=== PATIENT | female | born 1945 | race Caucasian/White ===

== ENCOUNTER → 2016-07-12 | Outpatient (CLI) | payer MEDICARE, BC ==
--- NOTE | 2016-07-13 11:41 | MM ---
Reason for exam: screening (asymptomatic). Last mammogram was performed 1 year and 10 months ago. History: Patient is postmenopausal. Family history of breast cancer in sister at age 67. Took estrogen for 7 years 2 months. Took progesterone for 7 years 2 months. Physical Findings: A clinical breast exam by your physician is recommended on an annual basis and results should be correlated with mammographic findings. MG 3D Screening Mammo W/Cad Bilateral CC and MLO view(s) were taken. Prior study comparison: September 05, 2014, bilateral MG screening mammo w CAD. February 28, 2013, [facility] DIGITAL RIGHT MAMMOGRAM w/CAD. There are scattered fibroglandular densities. Finding: There are typically benign calcifications in both breasts. No significant changes in finding since September 05, 2014 and February 28, 2013. ASSESSMENT: Benign, BI-RAD 2 RECOMMENDATION: Routine screening mammogram of both breasts in 1 year.
== END | disposition home or self-care (01) ==
LOC: RADMAMWWP 08:48
PROVIDERS: ATTEND Family Medicine
DX: Z12.31 Encounter for screening mammogram for malignant neoplasm of breast (principal)
CPT/HCPCS: 77063; G0202

== ENCOUNTER → 2016-11-30 | Outpatient (CLI) | payer MEDICARE, BC ==
[2016-11-30 07:26] LABS: Appearance,Urine Clear (Clear); Bilirubin,Urine Negative (Negative); Glucose,Urine (UA) Negative (Negative); Ketones,Urine Negative (Negative); Leukocyte Esterase,Urine Negative (Negative); Nitrite,Urine Negative (Negative); PH, Urine 5.5 (5.0-8.0); Protein,Urine Negative (Negative); Specific Gravity,Urine 1.008 (1.001-1.035); UA Billing (MACRO vs. MICRO) CHEM; Urobilinogen,Urine <2.0 mg/dL (<2.0)
[2016-11-30 07:37] LABS: Basophils % (A) 1 %; CH 30.6; Eosinophils # (A) 0.3 k/uL (0-0.7); Eosinophils % (A) 4 %; HCT 43.5 % (34.0-46.0); HDW 2.09; HGB 14.4 gm/dL (11.4-16.0); Luc % (Auto) 3; Lymphocytes # (A) 1.3 k/uL (1.0-4.8); Lymphocytes % (A) 20 %; MCH 31.8 pg (25.0-35.0); MCV 96.2 fL (80.0-100.0); Mean Platelet Volume 6.8; Monocytes # (A) 0.4 k/uL (0-1.0); Monocytes % (A) 6 %; Neutrophils # (A) 4.4 k/uL (1.3-7.7); Neutrophils % (A) 66 %; RBC 4.52 m/uL (3.80-5.40); RDW 12.5 % (11.5-15.5); WBC 6.6 k/uL (3.8-10.6); WBC (Perox) 6.61
[2016-11-30 08:24] LABS: ALT 30 U/L (9-52); AST 27 U/L (14-36); Alkaline Phosphatase 82 U/L (38-126); Anion Gap 12 mmol/L; Bilirubin, Delta 0.3 mg/dL (0.0-0.2); Blood Urea Nitrogen 18 mg/dL (7-17); Carbon Dioxide 29 mmol/L (22-30); Chloride 100 mmol/L (98-107); Glucose 88 mg/dL (74-99); Non-African American GFR(MDRD) >60 (>60 ml/min/1.73 sqM); Potassium 4.5 mmol/L (3.5-5.1); Sodium 141 mmol/L (137-145); Total Bilirubin 0.5 mg/dL (0.2-1.3); Total Protein 7.2 g/dL (6.3-8.2)
[2016-11-30 12:11] LABS: Hemoglobin A1C 5.5 % (4.2-6.1)
== END | disposition home or self-care (01) ==
LOC: LABWHC1 06:42
PROVIDERS: ATTEND Family Medicine
DX: F32.2 Major depressive disorder, single episode, severe without psychotic features (principal); Z79.899 Other long term (current) drug therapy
CPT/HCPCS: 36415; 80053; 80306; 81003; 82248; 82570; 83036; 84439; 84443; 84479; 85025

== ENCOUNTER 2016-12-08 01:44 | Inpatient (IN) | payer MEDICARE, BC ==
[2016-12-08] MEDS ORDERED: IPRATROPIUM 0.5 MG/2.5 ML NEBU INHALATION STA (01:53)
[2016-12-08] MEDS ORDERED: ALBUTEROL NEBULIZED 2.5 MG/3 ML INHALATION STA (01:53)
[2016-12-08] MEDS ORDERED: SODIUM CHLORIDE 0.9% 1,000 ML IV STA ×2 (01:53→02:50)
--- NOTE | 2016-12-08 01:54 | ED ---
General Adult HPI - General Stated complaint: MAVERICK Time Seen by Provider: 12/08/16 01:52 Source: RN notes reviewed, old records reviewed - History of Present Illness Initial comments: This is a 71 female to the ED co sob, weakness, chest pain and chest tightness. Patient has history of asthma, COPD, high cholesterol. Patient has no fever, no travel history no known sick contacts. Patient is complaining of chest pain shows of breath increased cough and congestion increased sputum production. Denies fevers - Related Data Home Medications Medication Instructions Recorded Confirmed Omeprazole [PriLOSEC] 20 mg PO AC-BRKFST 05/25/14 12/08/16 Pentosan Polysulfate Sodium 1 tab PO TID 11/24/14 12/08/16 [Elmiron] traMADol HCL [Tramadol HCl] 100 mg PO TID PRN 11/24/14 12/08/16 Amitriptyline HCl [Elavil] 50 mg PO HS 07/21/15 12/08/16 lamoTRIgine [LaMICtal] 200 mg PO QAM 07/21/15 12/08/16 Albuterol Sulfate [Proair Hfa] 1 - 2 puff INHALATION RT-Q6H PRN 12/17/15 Multivitamins, Thera [Multivitamin 1 tab PO DAILY 12/23/15 12/08/16 (formulary)] fluvoxaMINE MALEATE [Luvox] 100 mg PO BID 12/23/15 12/08/16 traZODone HCL 150 mg PO HS 12/23/15 12/08/16 Magnesium Hydroxide [Milk of 2,400 mg PO DAILY PRN 04/16/16 12/08/16 Magnesia] Naproxen Sodium [Aleve] 220 - 440 mg PO BID PRN 04/16/16 12/08/16 Previous Rx's Medication Instructions Recorded Gabapentin [Neurontin] 100 mg PO TID #90 cap 04/18/16 Allergies Allergy/AdvReac Type Severity Reaction Status Date / Time No Known Allergies Allergy Verified 12/08/16 01:57 Review of Systems ROS Statement: Those systems with pertinent positive or pertinent negative responses have been documented in the HPI. ROS Other: All systems not noted in ROS Statement are negative. Past Medical History Past Medical History: Asthma, COPD, Hyperlipidemia Additional Past Medical History / Comment(s): Hx of Polio, IBS, TIA 7 yrs ago ( no residual per pt), hiatal hernia, arthritis, Interstitial Cystitis. History of Any Multi-Drug Resistant Organisms: None Reported Past Surgical History: Hernia Repair, Tonsillectomy Additional Past Surgical History / Comment(s): 3- lap carlos fundoplication , Umbilical Hernia Repair, Right leg - part of bone removed as a child due to polio., EGD w/balloon dilation d/t Past Anesthesia/Blood Transfusion Reactions: No Reported Reaction Past Psychological History: Anxiety, Bipolar, Depression Additional Psychological History / Comment(s): MAJOR DEPRESSIVE DISORDER. HX OF SUICIDE ATTEMPT Smoking Status: Former smoker Past Alcohol Use History: None Reported Additional Past Alcohol Use History / Comment(s): SMOKING AT AGE 21STARTED ,<1 PPD, QUIT 2011. PAST ETOH ABUSE NONE SINCE Past Drug Use History: None Reported - Past Family History Father Family Medical History: Asthma Additional Family Medical History / Comment(s): emphysema Mother Family Medical History: Memory Impairment Additional Family Medical History / Comment(s): alzheimers Sister(s) Family Medical History: Cancer Additional Family Medical History / Comment(s): ca:breast General Exam General appearance: alert, in no apparent distress, anxious Head exam: Present: atraumatic, normocephalic, normal inspection Eye exam: Present: normal appearance, PERRL, EOMI. Absent: scleral icterus, conjunctival injection, periorbital swelling ENT exam: Present: normal exam, mucous membranes moist Neck exam: Present: normal inspection. Absent: tenderness, meningismus, lymphadenopathy Respiratory exam: Present: normal lung sounds bilaterally, wheezes, accessory muscle use, decreased breath sounds, prolonged expiratory. Absent: respiratory distress, rales, rhonchi, stridor Cardiovascular Exam: Present: regular rate, normal rhythm, normal heart sounds. Absent: systolic murmur, diastolic murmur, rubs, gallop, clicks GI/Abdominal exam: Present: soft, normal bowel sounds. Absent: distended, tenderness, guarding, rebound, rigid Extremities exam: Present: normal inspection, full ROM, normal capillary refill. Absent: tenderness, pedal edema, joint swelling, calf tenderness Back exam: Present: normal inspection Neurological exam: Present: alert, oriented X3, CN II-XII intact Psychiatric exam: Present: normal affect, normal mood Skin exam: Present: warm, dry, intact, normal color. Absent: rash Course Vital Signs 12/08/16 12/08/16 12/08/16 01:48 01:56 02:07 Temperature 97.6 F Pulse Rate 91 88 89 Respiratory 18 20 22 Rate Blood Pressure 130/60 119/61 O2 Sat by Pulse 90 L 95 Oximetry 12/08/16 02:30 Temperature Pulse Rate 89 Respiratory Rate Blood Pressure O2 Sat by Pulse Oximetry - Reevaluation(s) Reevaluation #1: 12/08/16 04:10 Date patient does have moderate improvement after prolonged breathing treatment EKG Findings - EKG Comments: EKG Findings:: EKG shows normal sinus rhythm of 92, ND 1:30, QRS 90, QTC 4:30 Medical Decision Making - Medical Decision Making 71 female here for evaluation of shortness of breath cough and congestion, low pulse ox, asthma and COPD exacerbation, patient will be admitted for treatment, breathing treatments, monitoring her pulmonary status - Lab Data Result diagrams: 12/08/16 02:00 12/08/16 02:00 Lab Results 12/08/16 12/08/16 12/08/16 Range/Units 02:00 02:00 02:00 WBC 18.4 H (3.8-10.6) k/uL RBC 4.12 (3.80-5.40) m/uL Hgb 12.8 (11.4-16.0) gm/dL Hct 37.6 (34.0-46.0) % MCV 91.3 (80.0-100.0) fL MCH 31.1 (25.0-35.0) pg MCHC 34.0 (31.0-37.0) g/dL RDW 12.5 (11.5-15.5) % Plt Count 205 (150-450) k/uL Neutrophils % 89 % Lymphocytes % 6 % Monocytes % 4 % Eosinophils % 0 % Basophils % 0 % Neutrophils # 16.3 H (1.3-7.7) k/uL Lymphocytes # 1.1 (1.0-4.8) k/uL Monocytes # 0.8 (0-1.0) k/uL Eosinophils # 0.0 (0-0.7) k/uL Basophils # 0.0 (0-0.2) k/uL PT (9.0-12.0) sec INR (<1.1) APTT (22.0-30.0) sec Sodium 126 L (137-145) mmol/L Potassium 3.8 (3.5-5.1) mmol/L Chloride 90 L (98-107) mmol/L Carbon Dioxide 23 (22-30) mmol/L Anion Gap 13 mmol/L BUN 8 (7-17) mg/dL Creatinine 0.40 L (0.52-1.04) mg/dL Est GFR (MDRD) Af Amer >60 (>60 ml/min/1.73 sqM) Est GFR (MDRD) Non-Af >60 (>60 ml/min/1.73 sqM) Glucose 131 H (74-99) mg/dL Calcium 9.4 (8.4-10.2) mg/dL Magnesium 1.9 (1.6-2.3) mg/dL Total Bilirubin 0.7 (0.2-1.3) mg/dL AST 34 (14-36) U/L ALT 39 (9-52) U/L Alkaline Phosphatase 108 (38-126) U/L Total Creatine Kinase 47 (30-135) U/L CK-MB (CK-2) 1.9 (0.0-2.4) ng/mL CK-MB (CK-2) Rel Index 4.0 Troponin I <0.012 (0.000-0.034) ng/mL NT-Pro-B Natriuret Pep pg/mL Total Protein 6.3 (6.3-8.2) g/dL Albumin 3.6 (3.5-5.0) g/dL 12/08/16 12/08/16 Range/Units 02:00 02:00 WBC (3.8-10.6) k/uL RBC (3.80-5.40) m/uL Hgb (11.4-16.0) gm/dL Hct (34.0-46.0) % MCV (80.0-100.0) fL MCH (25.0-35.0) pg MCHC (31.0-37.0) g/dL RDW (11.5-15.5) % Plt Count (150-450) k/uL Neutrophils % % Lymphocytes % % Monocytes % % Eosinophils % % Basophils % % Neutrophils # (1.3-7.7) k/uL Lymphocytes # (1.0-4.8) k/uL Monocytes # (0-1.0) k/uL Eosinophils # (0-0.7) k/uL Basophils # (0-0.2) k/uL PT 11.6 (9.0-12.0) sec INR 1.2 (<1.1) APTT 28.9 (22.0-30.0) sec Sodium (137-145) mmol/L Potassium (3.5-5.1) mmol/L Chloride (98-107) mmol/L Carbon Dioxide (22-30) mmol/L Anion Gap mmol/L BUN (7-17) mg/dL Creatinine (0.52-1.04) mg/dL Est GFR (MDRD) Af Amer (>60 ml/min/1.73 sqM) Est GFR (MDRD) Non-Af (>60 ml/min/1.73 sqM) Glucose (74-99) mg/dL Calcium (8.4-10.2) mg/dL Magnesium (1.6-2.3) mg/dL Total Bilirubin (0.2-1.3) mg/dL AST (14-36) U/L ALT (9-52) U/L Alkaline Phosphatase (38-126) U/L Total Creatine Kinase (30-135) U/L CK-MB (CK-2) (0.0-2.4) ng/mL CK-MB (CK-2) Rel Index Troponin I (0.000-0.034) ng/mL NT-Pro-B Natriuret Pep 440 pg/mL Total Protein (6.3-8.2) g/dL Albumin (3.5-5.0) g/dL - Radiology Data Radiology results: report reviewed (Chest x-ray is negative for acute disease), image reviewed Disposition Clinical Impression: Dyspnea, Chest pain, Acute exacerbation of chronic obstructive airways disease Disposition: ADMITTED IP TO THIS [facility] Condition: Fair Referrals: Angel Coronel Jr, [Primary Care Provider] - 1-2 days
[2016-12-08 02:23] LABS: Basophils % (A) 0 %; Eosinophils % (A) 0 %; HCT 37.6 % (34.0-46.0); HDW 2.14; HGB 12.8 gm/dL (11.4-16.0); Luc # (Auto) 0.21; Luc % (Auto) 1; Lymphocytes # (A) 1.1 k/uL (1.0-4.8); Lymphocytes % (A) 6 %; MCH 31.1 pg (25.0-35.0); MCV 91.3 fL (80.0-100.0); Mean Platelet Volume 6.8; Monocytes # (A) 0.8 k/uL (0-1.0); Monocytes % (A) 4 %; Neutrophils # (A) 16.3 k/uL (1.3-7.7); Neutrophils % (A) 89 %; RBC 4.12 m/uL (3.80-5.40); RDW 12.5 % (11.5-15.5); WBC 18.4 k/uL (3.8-10.6); WBC (Perox) 17.96
[2016-12-08 02:28] LABS: INR 1.2 (<1.1); Partial Thromboplastin Time 28.9 sec (22.0-30.0); Prothrombin Time 11.6 sec (9.0-12.0)
[2016-12-08 02:32] LABS: ALT 39 U/L (9-52); AST 34 U/L (14-36); Alkaline Phosphatase 108 U/L (38-126); Anion Gap 13 mmol/L; Blood Urea Nitrogen 8 mg/dL (7-17); Calcium 9.4 mg/dL (8.4-10.2); Carbon Dioxide 23 mmol/L (22-30); Chloride 90 mmol/L (98-107); Glucose 131 mg/dL (74-99); Magnesium 1.9 mg/dL (1.6-2.3); Non-African American GFR(MDRD) >60 (>60 ml/min/1.73 sqM); Potassium 3.8 mmol/L (3.5-5.1); Sodium 126 mmol/L (137-145); Total Bilirubin 0.7 mg/dL (0.2-1.3); Total Protein 6.3 g/dL (6.3-8.2)
[2016-12-08] MEDS ORDERED: KETOROLAC 30 MG/ML 1 ML VIAL IVP STA (02:50)
[2016-12-08] MEDS ORDERED: SODIUM CHLORIDE 0.9% 500 ML IV STA (02:50)
[2016-12-08] MEDS ORDERED: methylPREDNISolone SOD SUCCI 125 MG/2 ML VIAL IV STA (02:50)
[2016-12-08 03:02] LABS: Creatine Kinase 47 U/L (30-135)
[2016-12-08 03:15] LABS: Creatine Kinase MB 1.9 ng/mL (0.0-2.4); Troponin I <0.012 ng/mL (0.000-0.034)
--- NOTE | 2016-12-08 03:17 | XR ---
EXAM: XR Chest, 2 Views CLINICAL HISTORY: Reason: difficulty breathing TECHNIQUE: Frontal and lateral views of the chest. COMPARISON: Chest x-ray dated 04/16/16 FINDINGS: Lungs: Hyperinflation. Bibasilar atelectasis. Pleural space: Unremarkable. No pneumothorax. Heart: Unremarkable. No cardiomegaly. Mediastinum: Unremarkable. Bones/joints: Multilevel degenerative changes of the spine. IMPRESSION: Hyperinflation. Bibasilar atelectasis.
[2016-12-08 05:01] VITALS: BMI 22.6
[2016-12-08] MEDS: SODIUM CHLORIDE 0.9% 1,000 ML IV SCH ×3 (05:36→23:40)
[2016-12-08] MEDS ORDERED: MORPHINE SULFATE 2 MG/ML SYRINGE IVP PRN (05:45)
[2016-12-08] MEDS: MORPHINE SULFATE 2 MG/ML SYRINGE IVP PRN ×5 (06:02→23:40)
[2016-12-08] MEDS: IPRATROPIUM-ALBUTEROL 3 ML NEB INHALATION SCH ×4 (07:09→19:50)
[2016-12-08 08:10] LABS: Glucose,Whole Blood 186 mg/dL (75-99)
[2016-12-08] MEDS ORDERED: MAGNESIUM HYDROXIDE 2,400 MG/10 ML CUP PO PRN (08:26)
[2016-12-08] MEDS: AZITHROMYCIN 500 MG TAB PO SCH (08:59)
[2016-12-08] MEDS: methylPREDNISolone SOD SUCCI 125 MG/2 ML VIAL IV SCH ×4 (08:59→23:47)
[2016-12-08] MEDS: ENOXAPARIN 40 MG/0.4 ML SYRINGE SQ SCH (08:59)
[2016-12-08] MEDS: PANTOPRAZOLE 40 MG TABLET PO SCH (09:00)
[2016-12-08] MEDS: lamoTRIgine 100 MG TAB PO SCH (09:00)
[2016-12-08] MEDS: MULTIVITAMINS, THERA 1 EACH TAB PO SCH (09:00)
[2016-12-08 12:29] LABS: Glucose,Whole Blood 165 mg/dL (75-99)
[2016-12-08] MEDS: traMADol 50 MG TAB PO SCH ×2 (14:20→20:45)
--- NOTE | 2016-12-08 16:41 | CONS ---
DATE OF CONSULTATION: This is a 71-year-old female who apparently sees Dr. Maddox in our office. The patient presented to the emergency department with complaints of increasing shortness of breath, weakness, chest pain and chest tightness. She does have a history of COPD, for which he sees Dr. Maddox. She also has a history of hyperlipidemia. No fever. No chills. Not coughing up any blood. Not really bringing up any phlegm per se. She does have chest congestion. The patient does not really look all that bad. She appears only to be on an updraft machine at home and ProAir rescue inhaler. Does not use oxygen at home. Suspect that she does not have overwhelmingly severe COPD. She apparently sees Dr. Coronel or one of the doctors in Dr. Coronel's office. Her home medications include: 1. Omeprazole. 2. Elmiron. 3. Tramadol. 4. Elavil. 5. Lamictal. 6. ProAir HFA. 7. Vitamins. 8. Luvox. 9. Trazodone. 10. Milk of magnesia. 11. Naproxen. 12. Gabapentin. ALLERGIES: DENIED. Medical history is not too remarkable. She does apparently have a history of asthma/COPD which appears to be relatively mild. She also apparently has: 1. Hyperlipidemia. 2. Previous history of polio. 3. IBS. 4. TIA. 5. Hiatal hernia. 6. Arthritis. 7. Interstitial cystitis. 8. Previous hernia repair. 9. Tonsillectomy. 10. She is also status post Lucita fundoplication back in September 2015. 11. She has had the umbilical hernia repair. 12. EGD with balloon dilatation. 13. She also apparently has a history of depression with a previous suicide attempt. Social history is positive for previous tobacco use. Alcohol use is denied. No illicit drug use. Family history is positive for asthma/emphysema as well as dementia. There is also a family history of breast cancer. REVIEW OF SYSTEMS: CONSTITUTIONAL: Negative. NEUROLOGICAL: Negative. HEENT: Negative. CARDIOVASCULAR: Negative. PULMONARY: Shortness of breath, cough. Minimal phlegm production. GI/: Negative. RHEUMATOLOGIC/IMMUNOLOGIC: Negative. ENDOCRINOLOGIC: Negative. Currently temperature is 96.8, heart rate 77, respiratory rate 16, blood pressure 107/58, mean 74. Three-liter saturation 93%. Appears in no acute distress. HEENT examination is grossly unremarkable. Mucous membranes are moist. NECK: Supple. Full range of motion. No adenopathy. Cardiovascular examination reveals regular rhythm and rate. Lungs reveal a few scattered rhonchi. Not much in the way of wheezes. It does not really sound bad. No crackles. ABDOMEN: Soft. Bowel sounds are heard. Extremities are intact. Skin without rash. Lab data is reviewed. White count 18.4. Hemoglobin, hematocrit and platelet count are all normal. PT, INR normal. PTT normal. Sodium 126, potassium 3.8, chloride 90, CO2 of 23. BUN and creatinine were 8 and 0.4. The rest of the labs look okay. N-terminal proBNP okay. Troponins negative. Chest x-ray shows mostly hyperinflation and changes of COPD. Medications are reviewed. ASSESSMENT: 1. Chronic obstructive pulmonary disease exacerbation, possibly triggered by very mild purulent tracheobronchitis. 2. History of hyperlipidemia. 3. History of depression. 4. Previous suicide attempt. 5. Multiple previous surgeries. 6. History of polio. 7. History of irritable bowel syndrome. 8. Previous history of transient ischemic attack. 9. Degenerative joint disease. 10. History of interstitial cystitis. PLAN: Please see my recommendations. The patient's medications are reviewed. We will plan on looking at all her medications and make appropriate adjustments. She does not look bad. Hoping for discharge maybe in a day or so.
--- NOTE | 2016-12-08 16:58 | P.HPIM ---
History of Present Illness H&P Date: 12/08/16 Chief Complaint: Shortness of breath Patient is a 8-year-old female, patient of Dr. Helms and Dr. Johnson in the outpatient setting, with past medical history significant for asthma, COPD, hyperlipidemia, polio, irritable bowel syndrome, TIA, hiatal hernia, arthritis, interstitial cystitis, [Carlos fundoplication, umbilical hernia repair, EGD with balloon dilatation, anxiety, bipolar, and major depressive disorder. Patient presented to the emergency department with complaints of cough, congestion, and increased sputum production associated with chest tightness, and generalized weakness. No history of fevers. Chest x- ray with evidence of COPD and by basilar atelectasis. Labs on admission with evidence of leukocytosis with WBC of 18.4. Sodium 126. Troponin less than 0.012. EKG with evidence of normal sinus rhythm with no evidence of ischemia. Pulse ox on admission 90% on room air. Patient was admitted to the medical floor with the impression of acute exacerbation of COPD and acute hypoxic respiratory failure with consult to Dr. Ayon from pulmonary service. Patient currently complains of shortness of breath with minimal exertion, productive cough, and chest tightness with coughing. Denies chills, fevers, nausea, vomiting or abdominal pain. Patient states she did have one episode of diarrhea this morning. Denies melena or hematochezia. Afebrile. Past Medical History Past Medical History: Asthma, COPD, Hyperlipidemia Additional Past Medical History / Comment(s): Hx of Polio, IBS, TIA 7 yrs ago ( no residual per pt), hiatal hernia, arthritis, Interstitial Cystitis. History of Any Multi-Drug Resistant Organisms: None Reported Past Surgical History: Hernia Repair, Tonsillectomy Additional Past Surgical History / Comment(s): 09-18-15 lap carlos fundoplication , Umbilical Hernia Repair, Right leg - part of bone removed as a child due to polio., EGD w/balloon dilation d/t Past Anesthesia/Blood Transfusion Reactions: No Reported Reaction Past Psychological History: Anxiety, Bipolar, Depression Additional Psychological History / Comment(s): MAJOR DEPRESSIVE DISORDER. HX OF SUICIDE ATTEMPT Smoking Status: Former smoker Past Alcohol Use History: None Reported Additional Past Alcohol Use History / Comment(s): SMOKING AT AGE 21STARTED ,<1 PPD, QUIT 2011. PAST ETOH ABUSE NONE SINCE Past Drug Use History: None Reported - Past Family History Father Family Medical History: Asthma Additional Family Medical History / Comment(s): emphysema Mother Family Medical History: Memory Impairment Additional Family Medical History / Comment(s): alzheimers Sister(s) Family Medical History: Cancer Additional Family Medical History / Comment(s): ca:breast Medications and Allergies Home Medications Medication Instructions Recorded Confirmed Type Omeprazole [PriLOSEC] 20 mg PO AC-BRKFST 05/25/14 12/08/16 History Pentosan Polysulfate Sodium 100 mg PO TID 11/24/14 12/08/16 History [Elmiron] traMADol HCL [Tramadol HCl] 50 mg PO BID 11/24/14 12/08/16 History Amitriptyline HCl [Elavil] 50 mg PO HS 07/21/15 12/08/16 History lamoTRIgine [LaMICtal] 200 mg PO QAM 07/21/15 12/08/16 History Albuterol Sulfate [Proair Hfa] 1 - 2 puff INHALATION RT-Q6H PRN 12/17/15 History Multivitamins, Thera [Multivitamin 1 tab PO DAILY 12/23/15 12/08/16 History (formulary)] fluvoxaMINE MALEATE [Luvox] 100 mg PO BID 12/23/15 12/08/16 History traZODone HCL 150 mg PO HS 12/23/15 12/08/16 History Magnesium Hydroxide [Milk of 2,400 mg PO DAILY PRN 04/16/16 12/08/16 History Magnesia] Naproxen Sodium [Aleve] 220 - 440 mg PO BID PRN 04/16/16 12/08/16 History OLANZapine [ZyPREXA] 5 mg PO HS 12/08/16 12/08/16 History Allergies Allergy/AdvReac Type Severity Reaction Status Date / Time No Known Allergies Allergy Verified 12/08/16 07:56 Physical Exam Vitals: Vital Signs Temp Pulse Pulse Resp BP BP BP 12/08/16 16:22 86 12/08/16 16:10 86 12/08/16 15:49 77 12/08/16 11:06 88 12/08/16 10:50 86 12/08/16 08:00 77 12/08/16 07:20 84 12/08/16 07:10 84 12/08/16 07:00 96.8 F L 77 16 107/58 12/08/16 05:00 96.7 F L 86 20 131/60 12/08/16 04:00 68 20 115/86 12/08/16 02:56 68 16 119/71 12/08/16 02:30 89 12/08/16 02:07 89 22 12/08/16 01:56 88 20 119/61 12/08/16 01:48 97.6 F 91 18 130/60 Pulse Ox 12/08/16 16:22 12/08/16 16:10 12/08/16 15:49 12/08/16 11:06 12/08/16 10:50 12/08/16 08:00 12/08/16 07:20 12/08/16 07:10 12/08/16 07:00 93 L 12/08/16 05:00 98 12/08/16 04:00 94 L 12/08/16 02:56 92 L 12/08/16 02:30 12/08/16 02:07 12/08/16 01:56 95 12/08/16 01:48 90 L Intake and Output 12/08/16 12/08/16 12/08/16 06:59 14:59 22:59 Intake Total 100 1250 Balance 100 1250 Intake: IV 100 750 Sodium Chloride 0.9% 1, 100 750 000 ml @ 100 mls/hr IV . Q10H [facility] Rx#:[id number] Oral 500 Other: Voiding Method Toilet Toilet Toilet # Voids 1 4 4 # Bowel Movements 1 Weight 63.503 kg 63.503 kg 63.503 kg Patient Weight 12/09/16 06:59 Weight 63.503 kg GENERAL: Pt awake and alert, well-nourished, and in no acute distress. HEAD: Atraumatic, normocephalic. EYES: Pupils equal, round, sclera anicteric, conjunctiva are normal. ENT: Moist mucous membranes. NECK: Supple without lymphadenopathy or JVD. LUNGS: Breath sounds diminished with faint expiratory wheeze to auscultation bilaterally. HEART: Heart S1, S2, no S3 or S4. Regular rate and rhythm. No murmurs, rubs or gallops. ABDOMEN: Soft, nontender, mildly distended, normoactive bowel sounds. No guarding, no rebound. EXTREMITIES: Palpable peripheral pulses. No edema. No calf tenderness. NEUROLOGICAL: Pt oriented x 3. No focal deficits noted. Left-sided weakness. PSYCH: Normal mood, normal affect. SKIN: Warm, dry, intact. Normal turgor. No rashes or lesions. Results CBC & Chem 7: 12/08/16 02:00 12/08/16 02:00 Labs: Abnormal Lab Results - Last 24 Hours (Table) 12/08/16 12/08/16 12/08/16 Range/Units 02:00 02:00 07:46 WBC 18.4 H (3.8-10.6) k/uL Neutrophils # 16.3 H (1.3-7.7) k/uL Sodium 126 L (137-145) mmol/L Chloride 90 L (98-107) mmol/L Creatinine 0.40 L (0.52-1.04) mg/dL Glucose 131 H (74-99) mg/dL POC Glucose (mg/dL) 186 H (75-99) mg/dL 12/08/16 Range/Units 12:09 WBC (3.8-10.6) k/uL Neutrophils # (1.3-7.7) k/uL Sodium (137-145) mmol/L Chloride (98-107) mmol/L Creatinine (0.52-1.04) mg/dL Glucose (74-99) mg/dL POC Glucose (mg/dL) 165 H (75-99) mg/dL Chest x-ray: report reviewed Thrombosis Risk Factor Assmnt - DVT/VTE Prophylaxis DVT/VTE Prophylaxis: Pharmacologic Prophylaxis ordered, Mechanical Prophylaxis ordered - Choose All That Apply Each Factor Represents 1 point: Abnormal pulmonary function (COPD) Each Risk Factor Represents 2 Points: Age 61-74 years Other congenital or acquired thrombophilia - If yes, enter type in comment: No Thrombosis Risk Factor Assessment Total Risk Factor Score: 3 Thrombosis Risk Factor Assessment Level: Moderate Risk Assessment and Plan Plan: Impression and plan: 1. Acute exacerbation of COPD. Pulmonary consult requested, recommendations pending. Continue supplemental oxygen to keep oxygen saturation greater than 92 %. Continue nebulized updraft treatments. Continue antibiotics. Continue steroids. Continue pulmonary hygiene. Continue inhaled steroids. Continue supportive treatment and pain management. 2. Leukocytosis, present on admission. 3. Hyponatremia, present on admission. Sodium 126. 4. History of hyperlipidemia. 5. History of polio, left side. 6. History of irritable bowel syndrome. Continue pentostatin. 7. History of TIA. 8. History of hiatal hernia. 9. History of interstitial cystitis. 10. History of laparoscopic Carlos fundoplication. 11. History of EGD with balloon dilation. 12. Anxiety, bipolar, major depressive disorder, stable. Continue Desyrel, Zyprexa, Lamictal, Luvox, and Elavil. 13. History of nicotine dependence. Continue to monitor patient. Home medications have been reviewed and resumed as appropriate. Continue GI and DVT prophylaxis. Continue to follow with pulmonary service. Repeat CBC and BMP in a.m. The above impression and plan have been discussed and directed by Dr. Coronel. Sofia PIPER acting as scribe for Dr. Coronel.
[2016-12-08 17:44] LABS: Glucose,Whole Blood 131 mg/dL (75-99)
[2016-12-08] MEDS: clonazePAM 0.5 MG TAB PO PRN (18:31)
[2016-12-08] MEDS: SYMBICORT 160-4.5 MCG INHALER INHALATION SCH (19:50)
[2016-12-08 20:17] LABS: Glucose,Whole Blood 134 mg/dL (75-99)
[2016-12-08] MEDS: AMITRIPTYLINE HCL 50 MG TAB PO SCH (20:45)
[2016-12-08] MEDS: traZODone HCL 50 MG TAB PO SCH (20:46)
[2016-12-08] MEDS: OLANZapine 5 MG TAB PO SCH (20:46)
[2016-12-09] MEDS: traMADol 50 MG TAB PO SCH ×2 (06:16→21:26)
[2016-12-09] MEDS: methylPREDNISolone SOD SUCCI 125 MG/2 ML VIAL IV SCH ×3 (06:19→17:39)
[2016-12-09] MEDS: IPRATROPIUM-ALBUTEROL 3 ML NEB INHALATION SCH ×4 (07:01→20:35)
[2016-12-09] MEDS: SYMBICORT 160-4.5 MCG INHALER INHALATION SCH ×2 (07:01→20:35)
[2016-12-09] MEDS: ENOXAPARIN 40 MG/0.4 ML SYRINGE SQ SCH (07:36)
[2016-12-09] MEDS: AZITHROMYCIN 500 MG TAB PO SCH (07:36)
[2016-12-09] MEDS: MULTIVITAMINS, THERA 1 EACH TAB PO SCH (07:36)
[2016-12-09] MEDS: PANTOPRAZOLE 40 MG TABLET PO SCH (07:37)
[2016-12-09] MEDS: lamoTRIgine 100 MG TAB PO SCH (07:37)
[2016-12-09] MEDS: SODIUM CHLORIDE 0.9% 1,000 ML IV SCH ×2 (07:38→20:19)
[2016-12-09 07:40] LABS: Glucose,Whole Blood 130 mg/dL (75-99)
[2016-12-09] MEDS: clonazePAM 0.5 MG TAB PO PRN (07:59)
[2016-12-09 08:17] LABS: Basophils # (A) 0.1 k/uL (0-0.2); Basophils % (A) 0 %; CH 30.4; Eosinophils % (A) 0 %; HCT 38.2 % (34.0-46.0); HDW 2.21; HGB 12.4 gm/dL (11.4-16.0); Luc # (Auto) 0.18; Luc % (Auto) 1; Lymphocytes # (A) 0.8 k/uL (1.0-4.8); Lymphocytes % (A) 3 %; MCHC 32.5 g/dL (31.0-37.0); MCV 95.4 fL (80.0-100.0); Mean Platelet Volume 6.8; Monocytes # (A) 0.8 k/uL (0-1.0); Monocytes % (A) 3 %; Neutrophils # (A) 21.6 k/uL (1.3-7.7); Neutrophils % (A) 92 %; RBC 4.01 m/uL (3.80-5.40); RDW 12.6 % (11.5-15.5); WBC 23.4 k/uL (3.8-10.6); WBC (Perox) 23.64
[2016-12-09 08:23] LABS: Anion Gap 10 mmol/L; Blood Urea Nitrogen 7 mg/dL (7-17); Calcium 9.5 mg/dL (8.4-10.2); Carbon Dioxide 24 mmol/L (22-30); Chloride 105 mmol/L (98-107); Glucose 135 mg/dL (74-99); Non-African American GFR(MDRD) >60 (>60 ml/min/1.73 sqM); Potassium 4.1 mmol/L (3.5-5.1); Sodium 139 mmol/L (137-145)
[2016-12-09] MEDS: CHLORPHEN-HYDROcod 8-10mg/5ml 5 ML ORAL.SYRG PO SCH (10:39)
[2016-12-09 12:30] LABS: Glucose,Whole Blood 128 mg/dL (75-99)
[2016-12-09] MEDS ORDERED: ACETAMINOPHEN TAB 500 MG TAB PO PRN (12:40)
--- NOTE | 2016-12-09 12:53 | P.PN ---
Subjective Principal diagnosis: Exacerbation of COPD Patient is a 8-year-old female, patient of Dr. Helms and Dr. Johnson in the outpatient setting, with past medical history significant for asthma, COPD, hyperlipidemia, polio, irritable bowel syndrome, TIA, hiatal hernia, arthritis, interstitial cystitis, [Lucita fundoplication, umbilical hernia repair, EGD with balloon dilatation, anxiety, bipolar, and major depressive disorder. Patient presented to the emergency department with complaints of cough, congestion, and increased sputum production associated with chest tightness, and generalized weakness. No history of fevers. Chest x- ray with evidence of COPD and by basilar atelectasis. Labs on admission with evidence of leukocytosis with WBC of 18.4. Sodium 126. Troponin less than 0.012. EKG with evidence of normal sinus rhythm with no evidence of ischemia. Pulse ox on admission 90% on room air. Patient was admitted to the medical floor with the impression of acute exacerbation of COPD and acute hypoxic respiratory failure with consult to Dr. Ayon from pulmonary service. Patient currently complains of shortness of breath with minimal exertion, productive cough, and chest tightness with coughing. Denies chills, fevers, nausea, vomiting or abdominal pain. Patient states she did have one episode of diarrhea this morning. Denies melena or hematochezia. Afebrile. 12/09/2016: Patient is evaluated on the medical floor. Patient reports improvement in breathing from yesterday. Denies cough. Denies chills, fevers, nausea, vomiting or abdominal pain. Afebrile. WBC increased to 23.4. Oxygen saturation 82% on room air. Objective - Vital Signs Vital signs: Vital Signs Temp 97.6 F 12/09/16 07:00 Pulse 68 12/09/16 11:37 Resp 16 12/09/16 08:00 BP 119/58 12/09/16 07:00 Pulse Ox 93 L 12/09/16 07:01 Intake & Output 12/08/16 12/09/16 12/09/16 18:59 06:59 18:59 Intake Total 1250 900 Balance 1250 900 Weight 63.503 kg 63.503 kg Intake: IV 750 900 Sodium Chloride 0.9% 1, 750 900 000 ml @ 100 mls/hr IV . Q10H [facility] Rx#:[id number] Oral 500 Other: Voiding Method Toilet Toilet Toilet # Voids 4 1 1 # Bowel Movements 1 - Exam GENERAL: Pt awake and alert, well-nourished, and in no acute distress. HEAD: Atraumatic, normocephalic. EYES: Pupils equal, round, sclera anicteric, conjunctiva are normal. ENT: Moist mucous membranes. NECK: Supple without lymphadenopathy or JVD. LUNGS: Breath sounds diminished with faint expiratory wheeze to auscultation bilaterally. HEART: Heart S1, S2, no S3 or S4. Regular rate and rhythm. No murmurs, rubs or gallops. ABDOMEN: Soft, nontender, mildly distended, normoactive bowel sounds. No guarding, no rebound. EXTREMITIES: Palpable peripheral pulses. No edema. No calf tenderness. NEUROLOGICAL: Pt oriented x 3. No focal deficits noted. Left-sided weakness. PSYCH: Normal mood, normal affect. SKIN: Warm, dry, intact. Normal turgor. No rashes or lesions. - Labs CBC & Chem 7: 12/09/16 07:45 12/09/16 07:45 Labs: Abnormal Lab Results - Last 24 Hours (Table) 12/08/16 12/08/16 12/09/16 Range/Units 17:30 20:07 07:37 WBC (3.8-10.6) k/uL Neutrophils # (1.3-7.7) k/uL Lymphocytes # (1.0-4.8) k/uL Creatinine (0.52-1.04) mg/dL Glucose (74-99) mg/dL POC Glucose (mg/dL) 131 H 134 H 130 H (75-99) mg/dL 12/09/16 12/09/16 12/09/16 Range/Units 07:45 07:45 12:25 WBC 23.4 H (3.8-10.6) k/uL Neutrophils # 21.6 H (1.3-7.7) k/uL Lymphocytes # 0.8 L (1.0-4.8) k/uL Creatinine 0.41 L (0.52-1.04) mg/dL Glucose 135 H (74-99) mg/dL POC Glucose (mg/dL) 128 H (75-99) mg/dL Microbiology - Last 24 Hours (Table) 12/08/16 02:00 Blood Culture - Preliminary Blood No Growth after 24 hours Assessment and Plan Plan: Impression and plan: 1. Acute exacerbation of COPD. Pulmonary consult requested, recommendations noted. Continue supplemental oxygen to keep oxygen saturation greater than 92% . Continue nebulized updraft treatments. Continue antibiotics. Continue iv steroids. Continue pulmonary hygiene. Continue inhaled steroids. Continue supportive treatment and pain management. Will repeat chest x-ray. 2. Leukocytosis, present on admission. WBC increased to 23.4 from 18.4. 3. Hyponatremia, present on admission, resolved. 4. History of hyperlipidemia. 5. History of polio, left side. 6. History of irritable bowel syndrome. Continue pentostatin. 7. History of TIA. 8. History of hiatal hernia. 9. History of interstitial cystitis. 10. History of laparoscopic Lucita fundoplication. 11. History of EGD with balloon dilation. 12. Anxiety, bipolar, major depressive disorder, stable. Continue Desyrel, Zyprexa, Lamictal, Luvox, and Elavil. 13. History of nicotine dependence. Continue to monitor patient. Will repeat chest x-ray. Continue current medications. Continue GI and DVT prophylaxis. Continue to follow with service. Repeat CBC and BMP in a.m. The above impression and plan have been discussed and directed by Dr. Coronel. Sofia PIPER acting as scribe for Dr. Coronel.
--- NOTE | 2016-12-09 13:02 | PN ---
This is a 71-year-old female that we saw yesterday in consultation. We Saw her and thought she had a COPD exacerbation complicated by very mild purulent tracheobronchitis. She also suffers from hyperlipidemia, depression, previous suicide attempt, multiple previous surgeries, history of polio, irritable bowel syndrome, TIA, DJD, and interstitial cystitis. She sees Dr. Maddox in my office and was supposed to see him yesterday. The last time she saw the patient was about 6 months ago. The patient is doing a lot better. Much less short of breath. Still a little bit of a cough. The cough sounds a little bit wet and congested. Not really bringing up much or any phlegm. No fever, no chills. No nausea, vomiting, or diarrhea. Temperature is 97.6, heart rate 64, respiratory rate is 16, blood pressure 119/58, mean 78, 3 L saturation 93%. Appears in no acute distress. HEENT examination is grossly unremarkable. Mucous membranes are moist. No oral lesions. TMJ's are normal. Neck is supple. Full range of motion. No adenopathy or thyromegaly. Neck veins are flat. Cardiovascular examination reveals regular rhythm and rate. S1, S2 normal. No S3, S4 or murmur. Lungs reveal a few scattered rhonchi. No wheezes or crackles. Breath sounds equal. Abdomen is soft. Bowel sounds are heard. No masses or tenderness. Extremities are intact. No cyanosis, clubbing, or edema. Skin is without rash. Neurologic exam is nonfocal. Microbiology is negative thus far. Labs are reviewed. White count 23.4, hemoglobin is 12.4, hematocrit 38.2, platelet count 270,000. Sodium, potassium, chloride, and CO2 all normal. BUN and creatinine were 7 and 0.41. Microbiology is negative. Chest x-ray from the 12/08 shows just the hyperinflation. Medications are reviewed. They were adjusted yesterday. ASSESSMENT: 1. Chronic obstructive pulmonary disease exacerbation with hypoxemic respiratory failure complicated by purulent tracheobronchitis. 2. History of hyperlipidemia. 3. Depression. 4. Previous suicide attempts. 5. Multiple previous surgeries. 6. History of polio. 7. Irritable bowel syndrome. 8. Previous history of transient ischemic attack. 9. Degenerative joint disease. 10. History of interstitial cystitis. PLAN: The patient is doing well. Could probably be discharged home today or tomorrow. No additional recommendations are made. Will continue to follow. Medications were adjusted yesterday. Prognosis is guarded.
--- NOTE | 2016-12-09 13:19 | XR ---
EXAMINATION TYPE: XR chest 2V DATE OF EXAM: 12/09/2016 HISTORY: Follow-up. REFERENCE: Previous study dated 12/08/2016. FINDINGS: The lungs are overinflated. Heart size upper limits of normal. There is worsening bilateral airspace disease. There is worsening right upper lobe airspace disease. I suspect a small left effus ion. IMPRESSION: 1. COPD. 2. BORDERLINE CARDIOMEGALY. 3. WORSENING BILATERAL AIRSPACE DISEASE MAY REPRESENT PULMONARY EDEMA SUPERIMPOSED UPON ABNORMAL LUNG ARCHITECTURE OR PNEUMONIA.
[2016-12-09] MEDS: ACETAMINOPHEN TAB 325 MG TAB PO PRN ×2 (16:18→20:19)
[2016-12-09 17:29] LABS: Glucose,Whole Blood 131 mg/dL (75-99)
[2016-12-09 20:27] LABS: Glucose,Whole Blood 139 mg/dL (75-99)
[2016-12-09] MEDS: OLANZapine 5 MG TAB PO SCH (21:23)
[2016-12-09] MEDS: traZODone HCL 50 MG TAB PO SCH (21:23)
[2016-12-09] MEDS: AMITRIPTYLINE HCL 50 MG TAB PO SCH (21:23)
[2016-12-09 22:49] VITALS: RESP 18
[2016-12-10] MEDS: CHLORPHEN-HYDROcod 8-10mg/5ml 5 ML ORAL.SYRG PO SCH ×3 (00:18→23:23)
[2016-12-10] MEDS: methylPREDNISolone SOD SUCCI 125 MG/2 ML VIAL IV SCH ×5 (00:19→23:23)
[2016-12-10] MEDS: ACETAMINOPHEN TAB 325 MG TAB PO PRN ×3 (04:41→19:15)
[2016-12-10] MEDS: SODIUM CHLORIDE 0.9% 1,000 ML IV SCH ×3 (06:26→23:25)
[2016-12-10 07:29] LABS: Glucose,Whole Blood 107 mg/dL (75-99)
[2016-12-10 07:34] LABS: Basophils % (A) 0 %; CH 30.5; CHCM 32.3; Eosinophils % (A) 0 %; HCT 35.6 % (34.0-46.0); HDW 2.36; HGB 11.5 gm/dL (11.4-16.0); Luc # (Auto) 0.18; Luc % (Auto) 1; Lymphocytes # (A) 0.5 k/uL (1.0-4.8); Lymphocytes % (A) 2 %; MCH 30.7 pg (25.0-35.0); MCHC 32.3 g/dL (31.0-37.0); MCV 94.9 fL (80.0-100.0); Mean Platelet Volume 6.8; Monocytes # (A) 0.7 k/uL (0-1.0); Monocytes % (A) 3 %; Neutrophils # (A) 21.1 k/uL (1.3-7.7); Neutrophils % (A) 94 %; RBC 3.76 m/uL (3.80-5.40); RDW 13.1 % (11.5-15.5); WBC 22.4 k/uL (3.8-10.6); WBC (Perox) 24.36
[2016-12-10] MEDS: SYMBICORT 160-4.5 MCG INHALER INHALATION SCH ×2 (07:36→20:01)
[2016-12-10] MEDS: IPRATROPIUM-ALBUTEROL 3 ML NEB INHALATION SCH ×4 (07:36→20:01)
[2016-12-10 07:53] LABS: Anion Gap 6 mmol/L; Blood Urea Nitrogen 6 mg/dL (7-17); Calcium 9.3 mg/dL (8.4-10.2); Carbon Dioxide 28 mmol/L (22-30); Chloride 103 mmol/L (98-107); Glucose 116 mg/dL (74-99); Non-African American GFR(MDRD) >60 (>60 ml/min/1.73 sqM); Sodium 137 mmol/L (137-145)
[2016-12-10] MEDS: AZITHROMYCIN 500 MG TAB PO SCH (08:30)
[2016-12-10] MEDS: PANTOPRAZOLE 40 MG TABLET PO SCH (08:30)
[2016-12-10] MEDS: lamoTRIgine 100 MG TAB PO SCH (08:30)
[2016-12-10] MEDS: ENOXAPARIN 40 MG/0.4 ML SYRINGE SQ SCH (08:31)
[2016-12-10] MEDS: traMADol 50 MG TAB PO SCH ×2 (10:20→21:06)
[2016-12-10 11:27] LABS: Glucose,Whole Blood 123 mg/dL (75-99)
[2016-12-10] MEDS: MULTIVITAMINS, THERA 1 EACH TAB PO SCH (12:00)
--- NOTE | 2016-12-10 12:50 | PN ---
This is a 71-year-old female with a history of COPD and COPD exacerbation. She has had hypoxemic respiratory failure complicated by purulent tracheobronchitis. In addition, she has a history of hyperlipidemia, chronic depression, previous suicide attempts and multiple previous surgeries. 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 All in all from the pulmonary standpoint, the patient is doing reasonably well. She does see Dr. Maddox in the office for her chronic lung disease. She has no major issues or complaints. Initially, when I went into the room she was actually sleeping. She states that she is feeling a bit better. Much less short of breath. Some chest congestion. A bit of a cough. Not producing any phlegm. No fever, chills, nausea, vomiting, or diarrhea. Current vital signs include a temperature 97.5, heart rate 74, respiratory rate 18, blood pressure 162/80, mean 107 and 3 L saturation 94%. Appears in no acute distress. HEENT examination is grossly unremarkable. Mucous membranes are moist. No oral lesions. Neck is supple. Full range of motion. No adenopathy or thyromegaly. Neck veins are flat. Cardiovascular examination reveals regular rhythm and rate. S1, S2 normal. No S3, S4 or murmur. Heart sounds are a bit distant. Lungs reveal a few coarse rhonchi. Breath sounds are diminished. There is slight prolongation. She coughs and wheezes on forced maneuver. Breath sounds have improved. Breath sounds are equal. Abdomen is soft. Bowel sounds are heard. No masses or tenderness. Extremities are intact. No cyanosis, clubbing, or edema. Skin is without rash. Neurologic examination is nonfocal. Labs are reviewed. White count 22.4, hemoglobin 11.5, hematocrit 35.6, platelet count 387,000. Sodium 137, potassium 4, chloride 103, CO2 of 28, BUN and creatinine were 6 and 0.4. The rest of the labs look okay. The chest x-ray from yesterday shows COPD, borderline cardiomegaly, and some possible bilateral airspace disease, which may be a bit worse, representing either pulmonary edema or pneumonia. Clinically, the patient is better. Microbiologically, thus far cultures are negative. Medications are reviewed. From the pulmonary standpoint, she remains on Zithromax. Symbicort, DuoNeb, Solu-Medrol. I am going to add some Rocephin to her regimen. ASSESSMENT: 1. Chronic obstructive pulmonary disease exacerbation with hypoxemic respiratory failure complicated by purulent tracheobronchitis and possible bronchopneumonia. 2. History of hyperlipidemia. 3. Chronic depression. 4. Previous suicide attempt. 5. Multiple previous surgeries. 6. 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 7. Irritable bowel syndrome. 8. Previous history of transient ischemic attack. 9. Degenerative joint disease. 10. History of current interstitial cystitis. PLAN: I will add Rocephin to the regimen. No additional recommendations are made. Will continue to follow. Chest x-ray in the morning.
--- NOTE | 2016-12-10 14:15 | P.PN ---
Subjective Principal diagnosis: Mrs. Ramirez is a 71-year-old female history of COPD with acute exacerbation of chronic COPD. Has had hypoxemic respiratory failure compensated by Gisselle Ed tracheobronchitis. She has history of hyperlipidemia chronic depression with suicide attempts and multiple previous surgeries. History of post polio syndrome girdle bowel previous history of TIA DJD and anteroseptal cystitis. Patient was sleeping when I saw her, was arousable, sats were 94% on 2 L nasal cannula. She states she is much less short of breath slightly better mild cough. No fever, no chills, no nausea vomiting or diarrhea. On physical exam there is no adenopathy Objective - Vital Signs Vital signs: Vital Signs Temp 97.5 F L 12/10/16 07:00 Pulse 72 12/10/16 12:30 Resp 18 12/10/16 08:00 BP 162/80 12/10/16 07:00 Pulse Ox 91 L 12/10/16 07:00 Intake & Output 12/09/16 12/10/16 12/10/16 18:59 06:59 18:59 Intake Total 1002 480 Balance 1002 480 Weight 63.503 kg 63.503 kg Intake: IV 762 Sodium Chloride 0.9% 1, 762 000 ml @ 100 mls/hr IV . Q10H [facility] Rx#:[id number] Oral 240 480 Other: Voiding Method Toilet Toilet Toilet # Voids 4 3 1 - Exam General: [Patient awake, alert and oriented times 3. Patient in no acute distress.] HEENT: [PERRL. EOMI. No pharyngeal erythema or exudate.] Neck: [No adenopathy.] Cardiac: [Heart regular in rate and rhythm. No S3. No S4. No clicks, rubs. No murmur.] Lungs: Breath sounds are diminished bilaterally, few coarse rhonchi, she has coughs and wheezes in force maneuver. However breath sounds have improved from yesterday Abdomen: [No mass. No organomegaly. Bowel sounds presnt and normoactive in all 4 quadrants.] Extremes: [No edema no cyanosis no claudication normal pulses] : [] Musculoskeletal: [No joint erythema, edema or tenderness.] Skin: [No rash.] Neurologic: [No lateralizing deficits. CN II - XII grossly intact.] Lymphatic: [No adenopathy.] - Labs CBC & Chem 7: 12/10/16 07:16 12/10/16 07:16 Labs: Abnormal Lab Results - Last 24 Hours (Table) 12/09/16 12/09/16 12/10/16 Range/Units 17:18 20:26 07:16 WBC 22.4 H (3.8-10.6) k/uL RBC 3.76 L (3.80-5.40) m/uL Neutrophils # 21.1 H (1.3-7.7) k/uL Lymphocytes # 0.5 L (1.0-4.8) k/uL BUN (7-17) mg/dL Creatinine (0.52-1.04) mg/dL Glucose (74-99) mg/dL POC Glucose (mg/dL) 131 H 139 H (75-99) mg/dL 12/10/16 12/10/16 12/10/16 Range/Units 07:16 07:28 11:26 WBC (3.8-10.6) k/uL RBC (3.80-5.40) m/uL Neutrophils # (1.3-7.7) k/uL Lymphocytes # (1.0-4.8) k/uL BUN 6 L (7-17) mg/dL Creatinine 0.40 L (0.52-1.04) mg/dL Glucose 116 H (74-99) mg/dL POC Glucose (mg/dL) 107 H 123 H (75-99) mg/dL Microbiology - Last 24 Hours (Table) 12/08/16 02:00 Blood Culture - Preliminary Blood No Growth after 48 hours Assessment and Plan (1) Acute exacerbation of chronic obstructive airways disease Narrative/Plan: Labs reviewed. White count 22.4. Hemoglobin 11.5. Hematocrit 35.6. Sodium potassium chloride BUN/creatinine are all within normal limits Chest x-ray from yesterday suggests COPD, borderline cardiomegaly, airspace disease which may be a little worse suggesting pulmonary edema or pneumonia clinically I agree the patient is improved cultures are negative thus far Currently on Zithromax Symbicort DuoNeb Solu-Medrol Dr. Ayon's added Rocephin IV to the regimen Assessment chronic obstructive pulmonary disease with exacerbation hypoxemic respiratory failure complicated by purulent tracheobronchitis and possible bronchopneumonia History of hyperlipidemia History of chronic depression Previous suicide attempts Multiple previous surgeries History of polio with postpolio syndrome History of irritable bowel's disease Previous history of TIA Degenerative joint joint disease by history History of chronic interstitial cystitis continuing to monitor patient Status: Acute Time with Patient: Greater than 30
[2016-12-10 17:19] LABS: Glucose,Whole Blood 115 mg/dL (75-99)
[2016-12-10 20:09] LABS: Glucose,Whole Blood 160 mg/dL (75-99)
[2016-12-10] MEDS: traZODone HCL 50 MG TAB PO SCH (21:06)
[2016-12-10] MEDS: clonazePAM 0.5 MG TAB PO PRN (21:06)
[2016-12-10] MEDS: OLANZapine 5 MG TAB PO SCH (21:07)
[2016-12-10] MEDS: AMITRIPTYLINE HCL 50 MG TAB PO SCH (21:07)
[2016-12-11] MEDS: ACETAMINOPHEN TAB 325 MG TAB PO PRN ×3 (01:23→12:53)
[2016-12-11] MEDS: clonazePAM 0.5 MG TAB PO PRN (05:48)
[2016-12-11] MEDS: methylPREDNISolone SOD SUCCI 125 MG/2 ML VIAL IV SCH ×2 (06:21→12:53)
[2016-12-11] MEDS: NON-FORMULARY DRUG (Pentosan Polysulfate Sodium [Elmiron] 100 MG) PO SCH ×5 (07:08→07:13)
[2016-12-11] MEDS: SYMBICORT 160-4.5 MCG INHALER INHALATION SCH (07:17)
[2016-12-11] MEDS: IPRATROPIUM-ALBUTEROL 3 ML NEB INHALATION SCH ×2 (07:17→11:35)
[2016-12-11 07:29] LABS: Glucose,Whole Blood 110 mg/dL (75-99)
[2016-12-11 07:47] VITALS: BP 164/86; TEMP 98.3
[2016-12-11] MEDS: ENOXAPARIN 40 MG/0.4 ML SYRINGE SQ SCH (07:53)
[2016-12-11] MEDS: PANTOPRAZOLE 40 MG TABLET PO SCH (07:53)
[2016-12-11] MEDS: AZITHROMYCIN 500 MG TAB PO SCH (07:53)
[2016-12-11] MEDS: lamoTRIgine 100 MG TAB PO SCH (07:54)
--- NOTE | 2016-12-11 07:54 | XR ---
EXAMINATION TYPE: XR chest 2V DATE OF EXAM: 12/11/2016 COMPARISON: December 14, 2016 HISTORY: Shortness of breath TECHNIQUE: Frontal and lateral views of the chest are obtained. FINDINGS: Scattered senescent parenchymal changes noted. Hyperinflation compatible with COPD. Increasing right upper lobe infiltrate as well as left perihilar and right basilar infiltrate. Small effusions are noted. Superimposed pulmonary venous congestion. Heart size is stable. Mediastinal structures are stable and grossly unremarkable. No evidence for hilar prominence. Degenerative changes dorsal spine. IMPRESSION: 1. Progressive infiltrates felt to reflect pneumonia. Follow-up until resolution is advised.
[2016-12-11] MEDS: traMADol 50 MG TAB PO SCH ×2 (07:55→10:07)
[2016-12-11] MEDS: SODIUM CHLORIDE 0.9% 1,000 ML IV SCH (10:25)
[2016-12-11] MEDS: CHLORPHEN-HYDROcod 8-10mg/5ml 5 ML ORAL.SYRG PO SCH (10:27)
[2016-12-11 11:33] LABS: Glucose,Whole Blood 99 mg/dL (75-99)
[2016-12-11 11:47] VITALS: PULSE 86
[2016-12-11] MEDS: MULTIVITAMINS, THERA 1 EACH TAB PO SCH (12:54)
--- NOTE | 2016-12-11 13:07 | P.DS ---
Providers Date of admission: 12/08/16 04:07 Expected date of discharge: 12/11/16 Attending physician: Angel Coronel Consults: 12/08/16 04:09 Consult Physician Routine Consulting Provider: Tova Maddox Consult Reason/Comments: known Do you want consulting provider notified?: Yes Primary care physician: Angel Coronel - Discharge Diagnosis(es) (1) Acute exacerbation of chronic obstructive airways disease Patient was admitted with acute exacerbation of chronic obstructive airway disease, and pulmonary infiltrate Patient was started on gross IV Rocephin and azithromycin and Solu-Medrol General: [Patient awake, alert and oriented times 3. Patient in no acute distress.] HEENT: [PERRL. EOMI. No pharyngeal erythema or exudate.] Neck: [No adenopathy.] Cardiac: [Heart regular in rate and rhythm. No S3. No S4. No clicks, rubs. No murmur.] Lungs: Breath sounds are diminished bilaterally patient has few coarse rhonchi and coughs however she is improved from yesterday Abdomen: [No mass. No organomegaly. Bowel sounds presnt and normoactive in all 4 quadrants.] Extremes: [No edema no cyanosis no claudication normal pulses] : [] Musculoskeletal: [No joint erythema, edema or tenderness.] Skin: [No rash.] Neurologic: [No lateralizing deficits. CN II - XII grossly intact.] Lymphatic: [No adenopathy.] Current Visit: Yes Status: Acute Patient Condition at Discharge: Fair Plan - Discharge Summary New Discharge Prescriptions: New Azithromycin [Zithromax] 500 mg PO DAILY #5 tab predniSONE 0 mg PO DIRECTED #30 tab No Action Omeprazole [PriLOSEC] 20 mg PO AC-BRKFST traMADol HCL [Tramadol HCl] 50 mg PO BID Pentosan Polysulfate Sodium [Elmiron] 100 mg PO TID lamoTRIgine [LaMICtal] 200 mg PO QAM Amitriptyline HCl [Elavil] 50 mg PO HS Albuterol Sulfate [Proair Hfa] 1 - 2 puff INHALATION RT-Q6H PRN PRN Reason: Shortness Of Breath Multivitamins, Thera [Multivitamin (formulary)] 1 tab PO DAILY fluvoxaMINE MALEATE [Luvox] 100 mg PO BID traZODone HCL 150 mg PO HS Naproxen Sodium [Aleve] 220 - 440 mg PO BID PRN PRN Reason: Pain Magnesium Hydroxide [Milk of Magnesia] 2,400 mg PO DAILY PRN PRN Reason: Constipation OLANZapine [ZyPREXA] 5 mg PO HS Discharge Medication List Omeprazole [PriLOSEC] 20 mg PO AC-BRKFST 05/25/14 [History] Pentosan Polysulfate Sodium [Elmiron] 100 mg PO TID 11/24/14 [History] traMADol HCL [Tramadol HCl] 50 mg PO BID 11/24/14 [History] Amitriptyline HCl [Elavil] 50 mg PO HS 07/21/15 [History] lamoTRIgine [LaMICtal] 200 mg PO QAM 07/21/15 [History] Albuterol Sulfate [Proair Hfa] 1 - 2 puff INHALATION RT-Q6H PRN 12/17/15 [ History] Multivitamins, Thera [Multivitamin (formulary)] 1 tab PO DAILY 12/23/15 [History ] fluvoxaMINE MALEATE [Luvox] 100 mg PO BID 12/23/15 [History] traZODone HCL 150 mg PO HS 12/23/15 [History] Magnesium Hydroxide [Milk of Magnesia] 2,400 mg PO DAILY PRN 04/16/16 [History] Naproxen Sodium [Aleve] 220 - 440 mg PO BID PRN 04/16/16 [History] OLANZapine [ZyPREXA] 5 mg PO HS 12/08/16 [History] Azithromycin [Zithromax] 500 mg PO DAILY #5 tab 12/09/16 [Rx] predniSONE 0 mg PO DIRECTED #30 tab 12/09/16 [Rx] Follow up Appointment(s)/Referral(s): Angel Coronel Jr, [Primary Care Provider] - 1-2 days [facility] Visiting Nurse, [NON-STAFF] - 1 Week Activity/Diet/Wound Care/Special Instructions: patient requesting Pneumonia vaccine before discharge Discharge Disposition: HOME SELF-CARE
--- NOTE | 2016-12-11 15:34 | PN ---
71-year-old female with a history of underlying COPD exacerbation, hypoxemic respiratory failure currently tracheobronchitis and possible bronchopneumonia. The patient is doing a bit better clinically. The patient is feeling better. Less short of breath. Coughing. Not producing any phlegm. No fever, no chills. No chest pain. No nausea, vomiting, or diarrhea. 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 The patient is again improved. CURRENT VITAL SIGNS: Temperature 98.3, she has been afebrile. Heart rate 80, rate 18, blood pressure is 130/58, mean 82, 4 liters saturation 94%, 3 liters saturation 92%. Appears in no acute distress. HEENT examination is grossly unremarkable. Mucous membranes are moist. No oral lesions. Neck is supple. Full range of motion. No adenopathy or thyromegaly. Neck veins are flat. Cardiovascular examination reveals regular rhythm and rate. Lungs reveal a few scattered rhonchi. Breath sounds are diminished. No crackles. No expiratory wheezes. Breath sounds are equal. Slight prolongation. ABDOMEN: Soft. Bowel sounds are heard. No masses or tenderness. EXTREMITIES: Intact. No cyanosis, clubbing, or edema. Skin without rash. NEUROLOGICAL: Examination is nonfocal. Labs are reviewed. Nothing new from today. Microbiology is all negative. The rest of the data is reviewed. Medications are reviewed. ASSESSMENT: 1. Chronic obstructive pulmonary disease exacerbation complicated by purulent tracheobronchitis/bronchopneumonia. 2. Hypoxemic respiratory failure. 3. History of hyperlipidemia. 4. Chronic depression. 5. History of previous suicide attempts. 6. Multiple previous surgeries. 7. 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 8. Irritable bowel syndrome. 9. Previous history of transient ischemic attack. 10. Degenerative joint disease. 11. History of interstitial cystitis. PLAN: The patient is yet to be seen by the primary service. There was some talk of possible discharge. The patient may or may not be discharged today. Medications are reviewed. Microbiology is negative. Will continue to follow. Prognosis is guarded.
== END 2016-12-11 14:25 | disposition home health service (06) | DRG 190 ==
LOC: EC 01:44 → 5MS5E 04:07
PROVIDERS: ADMIT Family Medicine; ATTEND Family Medicine
DX: J44.0 Chronic obstructive pulmonary disease with (acute) lower respiratory infection (principal); J18.0 Bronchopneumonia, unspecified organism; J96.01 Acute respiratory failure with hypoxia; E87.1 Hypo-osmolality and hyponatremia; G14 Postpolio syndrome; E78.5 Hyperlipidemia, unspecified; J44.1 Chronic obstructive pulmonary disease with (acute) exacerbation; F32.9 Major depressive disorder, single episode, unspecified; F41.9 Anxiety disorder, unspecified; K58.0 Irritable bowel syndrome with diarrhea; M19.90 Unspecified osteoarthritis, unspecified site; N30.10 Interstitial cystitis (chronic) without hematuria; Z79.899 Other long term (current) drug therapy; Z86.73 Personal history of transient ischemic attack (TIA), and cerebral infarction without residual deficits; Z87.891 Personal history of nicotine dependence; Z91.5 Personal history of self-harm
CPT/HCPCS: 36415; 71020; 80048; 80053; 82550; 82553; 83735; 83880; 84484; 85025; 85610; 85730; 87040; 87070; 87205; 93005; 94640; 94760; 96361; 96374; 96375; 99285